=== PATIENT | female | born 1980 | race Caucasian/White ===

== ENCOUNTER 2022-10-06 09:41 | Emergency (ER) | payer OTHER ==
[~2022-10-06] VITALS: Ht 172.7 cm; Wt 71.7 kg
[2022-10-06] MEDS ORDERED: CYCLOBENZAPRINE5 MG PO (12:27)
[2022-10-06] MEDS ORDERED: ONDANSETRON ODT4 MG PO (12:27)
[2022-10-06] MEDS ORDERED: HYDROCODON-ACE1 EA10 PO (12:27)
== END 2022-10-06 12:48 | disposition home or self-care (01) ==
LOC: ED 09:41
DX: S01.01XA Laceration without foreign body of scalp, initial encounter (principal); V53.5XXA Driver of pick-up truck or van injured in collision with car, pick-up truck or van in traffic accident, initial encounter; Z88.5 Allergy status to narcotic agent; Z88.1 Allergy status to other antibiotic agents; Z88.2 Allergy status to sulfonamides
CPT/HCPCS: 36415; 70450; 71045; 72125; 72170; 80053; 82150; 82553; 83605; 83690; 84703; 85025; 86850; 86900; 86901; 96374; 96375; 96376; 99284-25; G0480; J0690; J2270; J2405; J2765; J7121

== ENCOUNTER 2023-02-08 17:40 | Emergency (ER) | payer OTHER ==
[~2023-02-08] VITALS: Ht 172.7 cm; Wt 66.6 kg
[~2023-02-08 17:40] MED LIST: CYCLOBENZAPRINE5 MG PO; HYDROCODON-ACE1 EA10 PO; ONDANSETRON ODT4 MG PO
[2023-02-08] MEDS ORDERED: CYCLOBENZAPRINE10 MG PO (20:32)
[2023-02-08] MEDS ORDERED: K-TAB ER20 MEQ PO (20:37)
--- NOTE | 2023-02-09 18:58 | EKG ---
[facility] [address] [place] [address] Signed Sinus rhythm with sinus arrhythmia with occasional premature ventricular complexes with ventricular escape complexes ST \T\ T wave abnormality, consider inferior ischemia Abnormal ECG No previous ECGs available Confirmed by Arlyn Johnson MD () on 02/09/2023 6:58:12 PM Electronically Signed By: ARLYN JOHNSON MD 02/09/23 1858 PATIENT NAME: POLO PARRISH HENRIK Electrocardiogram DATE OF : 80 PHYSICIAN: ARLYN JOHNSON MD REPORT #: [id number] REPORT IS CONFIDENTIAL AND NOT TO BE RELEASED WITHOUT AUTHORIZATION
== END 2023-02-08 21:25 | disposition home or self-care (01) ==
LOC: ED 17:40
DX: R07.89 Other chest pain (principal); J45.909 Unspecified asthma, uncomplicated; Z88.5 Allergy status to narcotic agent; Z88.1 Allergy status to other antibiotic agents; Z88.2 Allergy status to sulfonamides; Z88.8 Allergy status to other drugs, medicaments and biological substances
CPT/HCPCS: 36415; 71045; 71275; 80053; 83735; 84484; 85025; 93005; 93010; 99285-25; 99406; A9270; J3010; J3475; J3480; Q9967